=== PATIENT | male | born 1990 | race Caucasian/White ===

== ENCOUNTER → 2016-11-24 | Outpatient (CLI) | payer BC ==
--- NOTE | 2016-11-24 07:59 | US ---
EXAMINATION TYPE: US abdomen complete DATE OF EXAM: 11/24/2016 COMPARISON: NONE CLINICAL HISTORY: 26-year-old male R10.9 Abdominal Pain. Back pain. TECHNIQUE: Multiple sonographic images of the abdomen are obtained. FINDINGS: Liver Length: 14.3cm Gallbladder Wall: 0.2cm CBD: 4.6 mm Spleen: 10.2cm Right Kidney: 10.1 x 5.3 x 4.8cm Left Kidney: 11.4 x 3.9 x 5.2cm Pancreas: Suboptimal visualization of the pancreatic tail and most of the pancreatic body. Visualize d portions show no gross abnormality. Liver: wnl Gallbladder: No abnormal gallbladder distention, wall thickening, pericholecystic fluid, or shadowin g calculi. Evidence for sonographic Kidd's sign: no CBD: wnl Spleen: wnl Right Kidney: No hydronephrosis Left Kidney: No hydronephrosis Upper IVC: wnl Abd Aorta: wnl IMPRESSION: Suboptimal visualization of portions of the pancreas. Otherwise, unremarkable sonographic examination of the abdomen.
== END | disposition home or self-care (01) ==
LOC: RADUSWWP 07:24
PROVIDERS: ATTEND Internal Medicine
DX: R10.9 Unspecified abdominal pain (principal)
CPT/HCPCS: 76700